=== PATIENT | female | born 1980 | race Caucasian/White ===

== ENCOUNTER 2025-03-15 20:38 | Emergency (ER) | payer BC ==
[2025-03-15 22:00] VITALS: BP 121/82; PULSE 79; RESP 18
[2025-03-15 22:05] LABS: EST GLOMERULAR FILTRATION RATE 93.0 ML/MIN (>=60)
[2025-03-15 22:08] LABS: BASOPHILS % 0.6 % (0.0-1.0); EOSINOPHILS % 2.2 % (0.0-6.0); LYMPHOCYTES % 32.1 % (18.0-39.1); MONOCYTES % 4.1 % (4.4-11.3); NEUTROPHILS % 60.7 % (38.7-80.0); RED CELL DISTRIBUTION WIDTH 11.7 % (11.7-14.4)
[2025-03-15] MEDS ORDERED: AUGMENTIN 500-1 EACH PO (23:41)
[2025-03-15 23:45] VITALS: PULSE 60; RESP 18; TEMP 97.9; O2SAT 100
== END 2025-03-15 23:47 | disposition home or self-care (01) ==
LOC: ER 20:49
DX: R09.A2 Foreign body sensation, throat (principal)
CPT/HCPCS: 36415; 70490; 80048; 81025; 85025; 99284